=== PATIENT | male | born 1955 | race Caucasian/White ===

== ENCOUNTER 2017-12-30 13:36 | Emergency (ER) | END 2017-12-30 16:00 | disposition home or self-care (01) ==

== ENCOUNTER 2018-07-01 12:18 | Emergency (ER) | END 2018-07-01 16:00 | disposition home or self-care (01) ==

== ENCOUNTER 2019-02-25 10:48 | Inpatient (IN) | payer BC ==
[2019-02-25] VITALS (20 sets, daily range): BP systolic 109–146; BP diastolic 61–82; PULSE 64–82; RESP 14–19; Ht 165.1 cm; Wt 63.2 kg
[~2019-02-25] VITALS: Ht 165.1 cm; Wt 63.2 kg
[~2019-02-25 10:48] MED LIST: CLON0.5T PO; CLON0.5T14 PO; DULO30CA45 PO; TAMS-14 PO; TRAZ-111 PO
[2019-02-25] MEDS ORDERED: LORA0.5T PO ×2 (11:12)
[2019-02-25] MEDS ORDERED: DULO60CA6 PO (11:13)
[2019-02-25] MEDS ORDERED: TAMS-14 PO (11:13)
[2019-02-25] MEDS ORDERED: DULO30CA45 PO (11:13)
[2019-02-25] MEDS ORDERED: FINA5TAB4 PO (11:14)
[2019-02-25] MEDS ORDERED: TRAZ-111 PO (11:14)
--- NOTE | 2019-02-25 11:46 | PREAC ---
Date/Time of Note Date/Time of Note DATE: 02/25/19 TIME: 11:44 Anesthesia Eval and Record Evaluation Time Pre-Procedure Interview DATE: 02/25/19 TIME: 11:44 Age 63 Sex male NPO: 8 hrs Preoperative diagnosis BPH Planned procedure TURP Past Medical History Past Medical History: Includes Renal: BPH Psych: Anxiety (ON Lorazepam and Cymbalta) Surgery & Anesthesia Issues No known issue Meds Anticoagulation: No Beta Kirk within 24 hr: No Reason Beta Kirk not given: Pt. not on B-Kirk Reported Medications Trazodone Hcl* (Trazodone Hcl*) 50 Mg Tablet, 50 MG PO QHS PRN for SLEEP, #30 TAB 02/25/19 Finasteride* (Finasteride*) 5 Mg Tablet, 5 MG PO DAILY, TAB 02/25/19 Tamsulosin Hcl* (Flomax*) 0.4 Mg Cap.er.24h, 0.4 MG PO DAILY, CAP 02/25/19 Duloxetine Hcl* (Cymbalta*) 60 Mg Capsule.dr, 60 MG PO QAM, CAP 02/25/19 Duloxetine Hcl* (Cymbalta*) 30 Mg Capsule.dr, 30 MG PO QPM, CAP 02/25/19 Lorazepam* (Lorazepam*) 0.5 Mg Tablet, 0.25 MG PO QAM PRN for ANXIETY, TAB 02/25/19 Lorazepam* (Lorazepam*) 0.5 Mg Tablet, 0.5 MG PO HS PRN for SLEEP, TAB 02/25/19 Discontinued Reported Medications Clonazepam (Klonopin) 0.5 Mg Tablet, 0.25 MG PO HS, TAB 04/14/14 Trazodone Hcl* (Trazodone Hcl*) 50 Mg Tablet, 25 MG PO HS, TAB 04/14/14 Clonazepam* (Clonazepam*) 0.5 Mg Tablet, 0.25 MG PO DAILY, TAB 04/14/14 Duloxetine Hcl* (Cymbalta*) 30 Mg Capsule.dr, 30 MG PO DAILY, CAP 04/14/14 Discontinued Scripts Tamsulosin Hcl* (Flomax*) 0.4 Mg Cap.er.24h, 0.4 MG PO QPM, #30 CAP Prov:SHANNON ÁLVAREZ 07/01/18 Tamsulosin Hcl* (Flomax*) 0.4 Mg Cap.er.24h, 0.4 MG PO QPM, #30 CAP Prov:MOISES MOLINA MD 12/30/17 Meds reviewed: Yes Allergies Coded Allergies: egg (Verified Allergy, Severe, 02/25/19) Penicillins (Verified Allergy, Unknown, PRURITUS, 02/25/19) Allergies Reviewed: Yes Labs/Studies Labs Reviewed: Reviewed by anesthesiologist test: N/A Studies: ECG Pre-procedure Exam Airway: Adequate mouth opening, Adequate thyromental dist Mallampati: Mallampati II Teeth: Normal Lung: Normal Heart: Normal ASA Physical Status ASA physical status: 2 Emergency: None Planned Anesthetic General/MAC: LMA Planned Pain Management Parenteral pain med, Local by surgeon Pre-operative Attestations Prior to commencing anesthesia and surgery, the patient was re-evaluated, there was verification of: *The patient's identity *The results of appropriate recent lab work and preoperative vital signs *The above evaluation not changing prior to induction *Anesthetic plan, risk benefits, alternative and complications discussed with patient/family; questions answered; patient/family understands, accepts and wishes to proceed. ANTON NICOLE February 25, 2019 11:46
[2019-02-25] MEDS ORDERED: LIDOCAINE 2% (SDV) 5 ML INJ ONE (11:58)
[2019-02-25] MEDS ORDERED: PROPOFOL 20 ML ONE (11:58)
[2019-02-25] MEDS ORDERED: MIDAZOLAM 1 MG/ML 2 ML INJ ONE (11:58)
[2019-02-25] MEDS ORDERED: FENTAnyl 50 MCG/ML VIAL ONE (11:58)
[2019-02-25] MEDS ORDERED: CIPROFLOXACIN 400MG/D5W 200 ML IVPB STA (12:24)
--- NOTE | 2019-02-25 12:29 | HPN ---
Date/Time of Note Date/Time of Note DATE: 02/25/19 TIME: 12:29 Interval H&P Admission Note Pt. seen H&P reviewed: No system changes CLAUDIA YEPEZ MD February 25, 2019 12:29
[2019-02-25] MEDS ORDERED: CIPROFLOXACIN 400MG/D5W 200 ML ONE (12:31)
[2019-02-25] MEDS ORDERED: FAMOTIDINE 20 MG INJ ONE (12:59)
[2019-02-25] MEDS ORDERED: ONDANSETRON 4 MG INJ ONE (12:59)
[2019-02-25] MEDS ORDERED: DEXAMETHASONE 4 MG/ML 5 ML INJ ONE (12:59)
[2019-02-25] MEDS ORDERED: METOCLOPRAMIDE 10 MG INJ ONE (12:59)
[2019-02-25] MEDS ORDERED: EPHEDrine 25 MG/5 ML SYG ONE (13:13)
[2019-02-25] MEDS ORDERED: LABETALOL HCL 20MG INJ IV PRN (13:30)
[2019-02-25] MEDS ORDERED: hydrALAzine 20 MG INJ IV PRN (13:30)
[2019-02-25] MEDS ORDERED: ONDANSETRON 4 MG INJ IV PRN (13:30)
[2019-02-25] MEDS ORDERED: HYDROmorphONE 1 MG/5 ML IV SYRINGE IV PRN ×3 (13:30)
[2019-02-25] MEDS ORDERED: OXYCODONE/ACETAMINOPHEN (5/325) TAB PO PRN ×2 (13:30)
[2019-02-25] MEDS ORDERED: MEPERIDINE 25 MG INJ IV PRN (13:30)
[2019-02-25] MEDS ORDERED: MIDAZOLAM 1 MG/ML 2 ML INJ IV PRN (13:30)
[2019-02-25] MEDS ORDERED: ROCURONIUM 50 MG INJ ONE (13:35)
[2019-02-25] MEDS ORDERED: NEOSTIGMINE 3 MG/3 ML SYRINGE ONE (13:41)
[2019-02-25] MEDS ORDERED: GLYCOPYRROLATE 0.4 MG INJ ONE (13:41)
[2019-02-25] MEDS ORDERED: PHENYLephrine (100 MCG/ML) 10ML SYG ONE (15:08)
--- NOTE | 2019-02-25 15:48 | OPR ---
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 Timeout was done, the patient was identified by his name, birthdate and the procedure. The patient was given 400mg Cipro IV at the start of the procedure. The genital area was then prepped and draped in the usual sterile manner. Cystoscopy was done with a 22 [place] cystoscope and it showed prostatic enlargement with obstruction. The bladder was trabeculated. There was no bladder tumors or stones. The cystoscope was then removed and the urethra was dilated with the [place] dilators up to #30 [place]ian. The 26 [place]ian bipolar resectoscope sheath was then introduced under direct vision through the penile u rethra all the way to the bladder. Then the resection of the prostate was started. First the median lobe was resected then the right lateral lobe then the left lateral lobe and finally the anterior lobe as well as apical tissue. All the bleeders were electrocoagulated. All the prostatic chips were evacuated. Good hemostasis was obtained. The ureteral orifices as well as external sphincter were intact and safeguarded during the whole procedure. At the end of the procedure the resectoscope was removed and #24 [place]ian three-way Robb catheter was inserted into the bladder. The balloon was inflated with 90 mL of sterile water. The catheter was connected to a drainage bag and continuous bladder irrigation was started in the operating room with normal sali ne. The patient was transferred to the recovery room in stable and satisfactory condition. CLAUDIA YEPEZ MD February 25, 2019 15:48
--- NOTE | 2019-02-25 15:55 | PAC ---
Date/Time of Note Date/Time of Note DATE: 02/25/19 TIME: 15:54 Post-Anesthesia Notes Post-Anesthesia Note Last documented vital signs Vital Signs Date Temp Pulse Resp B/P (MAP) Pulse Ox O2 O2 Flow FiO2 Time Delivery Rate 02/25/19 98.4 70 16 112/61 99 Room Air 11:46 (78) Activity: WNL Respiratory function: WNL Cardiovascular function: WNL Mental status: Baseline Pain reasonably controlled: Yes Hydration appropriate: Yes Nausea/Vomiting absent: Yes DEE CASTILLO February 25, 2019 15:55
[2019-02-25] MEDS ORDERED: DOCUSATE SODIUM 100 MG CAP PO PRN (16:00)
[2019-02-25] MEDS ORDERED: MAGNESIUM HYDROXIDE 30ML CUP PO PRN (16:00)
[2019-02-25] MEDS ORDERED: traZODone 50 MG TAB PO PRN (17:30)
[2019-02-25] MEDS ORDERED: LORAZEPAM 0.5 MG TAB PO PRN ×2 (17:30)
[2019-02-25] MEDS: HYDROCODONE/APAP (5/325) TAB PO PRN (17:57)
[2019-02-25] MEDS: CIPROFLOXACIN 500 MG TAB PO SCH (17:58)
[2019-02-25] MEDS: DEXTROSE 5%-0.45% NACL 1,000 ML IV SCH (17:59)
[2019-02-25] MEDS: LACTATED RINGER'S 1,000 ML IV SCH (18:00)
--- NOTE | 2019-02-25 18:42 | HP ---
Date/Time of Note Date/Time of Note DATE: 02/25/19 TIME: 18:41 Assessment/Plan VTE Prophylaxis Pharmacological prophylaxis: NA/contraindicated Pharm contraindication: surgical contra Lines/Catheters IV [facility]from [facility] Saline Lock Assessment/Plan Hospital Course 1. Severe BPH status post TURP postop day 0 Continuous bladder irrigation Continue Flomax 2. Depression Continue meds Result Diagram: 02/25/19 1601 02/25/19 1601 Results 24hrs Laboratory Tests Test 02/25/19 12:20 02/25/19 16:01 White Blood Count 7.6 # Red Blood Count 4.96 Hemoglobin 14.5 11.6 L Hematocrit 43.7 35.0 L Mean Corpuscular Volume 88.1 Mean Corpuscular Hemoglobin 29.2 Mean Corpuscular Hemoglobin Concent 33.2 Red Cell Distribution Width 12.6 Platelet Count 221 Mean Platelet Volume 10.2 Immature Granulocytes % 0.300 Neutrophils % 62.4 Lymphocytes % 26.9 Monocytes % 7.7 Eosinophils % 1.9 Basophils % 0.8 Nucleated Red Blood Cells % 0.0 Immature Granulocytes # 0.020 Neutrophils # 4.7 Lymphocytes # 2.0 Monocytes # 0.6 Eosinophils # 0.1 Basophils # 0.1 Nucleated Red Blood Cells # 0.0 Prothrombin Time 13.0 Prothrombin Time Ratio 1.0 INR International Normalized Ratio 0.97 Activated Partial Thromboplast Time 28.4 Sodium Level 142 139 Potassium Level 4.4 3.9 Chloride Level 105 108 Carbon Dioxide Level 30 27 Anion Gap 7 4 L Blood Urea Nitrogen 26 H 25 H Creatinine 0.79 0.84 Est Glomerular Filtrat Rate mL/min > 60 > 60 Glucose Level 104 144 # Calcium Level 9.1 7.7 L Total Bilirubin 0.5 Direct Bilirubin 0.00 Indirect Bilirubin 0.5 Aspartate Amino Transf (AST/SGOT) 26 Alanine Aminotransferase (ALT/SGPT) 35 Alkaline Phosphatase 81 Total Protein 7.8 Albumin 4.2 Globulin 3.60 H Albumin/Globulin Ratio 1.16 HPI/ROS Admit Date/Time Admit Date/Time February 25, 2019 at 10:48 Hx of Present Illness Patient is a 63-year-old male with a history of severe BPH and depression who p resents for elective TURP. Patient is currently undergoing bladder irrigation with no significant complaints. ROS Constitutional: no complaints, improved Eyes: no complaints ENT: no complaints Respiratory: no complaints Cardiovascular: no complaints Gastrointestinal: no complaints Genitourinary: no complaints Musculoskeletal: no complaints Skin: no complaints Neurologic: no complaints Endocrine: no complaints Lymphatic: no complaints Psychological: no complaints, nl mood/affect Immunologic: no complaints PMH/Family/Social Past Medical History BPH and depression Medications Current Medications Lactated Ringer's 1,000 ml @ 25 mls/hr Q24H IV ; Start 02/25/19 at 12:30; Stop 02/27/19 at 04:29 Dextrose/Sodium Chloride 1,000 ml @ 50 mls/hr Q20H IV Last administered on 02/25/19at 17:59; Admin Dose 50 MLS/HR; Start 02/25/19 at 15:39 Ciprofloxacin (Cipro) 500 mg BID@06,18 PO Last administered on 02/25/19at 17:58; Admin Dose 500 MG; Start 02/25/19 at 18:00 Docusate Sodium (Colace) 100 mg BID PRN PO CONSTIPATION; Start 02/25/19 at 16:00 Docusate Sodium (Colace) 100 mg BID PO ; Start 02/25/19 at 21:00 Ferrous Sulfate (Ferrous Sulfate (Ec)) 325 mg BID PO ; Start 02/25/19 at 21:00 Magnesium Hydroxide (Milk Of Mag) 30 ml DAILY PRN PO CONSTIPATION; Start 02/25/19 at 16:00 Duloxetine HCl (Cymbalta) 30 mg QPM PO ; Start 02/25/19 at 21:00 Duloxetine HCl (Cymbalta) 60 mg QAM PO ; Start 02/26/19 at 09:00 Finasteride (Proscar) 5 mg DAILY PO ; Start 02/26/19 at 09:00 Lorazepam (Ativan) 0.25 mg QAM PRN PO ANXIETY; Start 02/25/19 at 17:30 Lorazepam (Ativan) 0.5 mg HS PRN PO SLEEP; Start 02/25/19 at 17:30 Tamsulosin HCl (Flomax) 0.4 mg DAILY PO ; Start 02/26/19 at 09:00 Trazodone HCl (Desyrel) 50 mg QHS PRN PO SLEEP; Start 02/25/19 at 17:30 Acetaminophen/ Hydrocodone Bitart ([place] (5/325)) 1 tab Q6H PRN PO MODERATE PAIN LEVEL 4-6 Last administered on 02/25/19at 17:57; Admin Dose 1 TAB; Start 02/25/19 at 18:00 Coded Allergies: egg (Verified Allergy, Severe, 02/25/19) Penicillins (Verified Allergy, Unknown, PRURITUS, 02/25/19) Past Surgical History TURP today Family History Significant Family History: no pertinent family hx Social History Alcohol Use: rarely Smoking Status: Never smoker Drug Use: none Exam/Review of Systems Vital Signs Vitals Vital Signs Date Temp Pulse Resp B/P (MAP) Pulse Ox O2 O2 Flow FiO2 Time Delivery Rate 02/25/19 66 16 122/71 98 Room Air 16:45 (88) 02/25/19 98.2 16:40 02/25/19 6.0 16:00 Exam Constitutional: alert, oriented Respiratory: clear to auscultation Cardiovascular: regular rate and rhythm Gastrointestinal: soft; No distended Musculoskeletal: nl extremities to inspection CARI MCMULLEN February 25, 2019 18:42
[2019-02-25] MEDS: DOCUSATE SODIUM 100 MG CAP PO SCH (20:03)
[2019-02-25] MEDS: FERROUS SULFATE (EC) 325 MG TAB PO SCH (20:03)
[2019-02-25] MEDS ORDERED: DULOXETINE 30 MG CAP DR PO SCH (21:00)
[2019-02-26 00:26] VITALS: BP 115/63; PULSE 60; RESP 18
[2019-02-26] MEDS: HYDROCODONE/APAP (5/325) TAB PO PRN (01:36)
[2019-02-26 04:41] VITALS: BP 136/64; PULSE 70; RESP 18
[2019-02-26] MEDS: CIPROFLOXACIN 500 MG TAB PO SCH (05:06)
[2019-02-26] MEDS: DEXTROSE 5%-0.45% NACL 1,000 ML IV SCH ×2 (05:08→11:39)
--- NOTE | 2019-02-26 08:07 | PN ---
Date/Time of Note Date/Time of Note DATE: 02/26/19 TIME: 08:04 Assessment/Plan Lines/Catheters IV Catheter Type (from Nrs): Peripheral IV Rizo in Place (from Nrs): Yes Cont'd rizo catheter reason: other (indicate) (Urological surgery) Assessment/Plan Chief Complaint/Hosp Course 63-year-old male status post transurethral resection of the prostate. He is postop day 1. The Rizo catheter is draining clear to clear pink urine with the bladder irrigation. We will stop the irrigation and connect the Rizo catheter to a leg bag and if the urine remains clear then he could go home this afternoon and I will see him in the office in 1 week to remove the Rizo catheter. Prescription was written for [place] 5/325mg, Cipro 500 mg twice a day, Colace 100 mg twice a day, milk of magnesia 30 mL as needed and ferrous sulfate 325 mg twice a day. Subjective 24 Hr Interval Summary Patient is comfortable. He did not sleep last night more than 2 hours Exam/Review of Systems Vital Signs Vitals Vital Signs Date Temp Pulse Resp B/P (MAP) Pulse Ox O2 O2 Flow FiO2 Time Delivery Rate 02/26/19 98.2 70 18 136/64 100 04:41 (88) 02/25/19 Room Air 19:00 02/25/19 6.0 16:00 Intake and Output 02/25/19 02/25/19 02/26/19 1515:00 23:00 07:00 IntakeIntake Total 1540 ml 975 ml OutputOutput Total 1625 ml 900 ml BalanceBalance -85 ml 75 ml Exam Free Text/Dictation Patient is post transurethral resection of the prostate. The Rizo catheter is draining clear to clear pink urine with the bladder irrigation. Results Result Diagram: 02/26/19 0435 02/25/19 1601 CLAUDIA YEPEZ MD February 26, 2019 08:07
[2019-02-26 08:30] VITALS: BP 112/65; PULSE 74; RESP 18
[2019-02-26] MEDS: FERROUS SULFATE (EC) 325 MG TAB PO SCH (08:55)
[2019-02-26] MEDS: DOCUSATE SODIUM 100 MG CAP PO SCH (08:55)
[2019-02-26] MEDS ORDERED: FINASTERIDE 5 MG TAB PO SCH (09:00)
[2019-02-26] MEDS ORDERED: TAMSULOSIN (SR) 0.4 MG CAP PO SCH (09:00)
[2019-02-26] MEDS ORDERED: DULOXETINE 30 MG CAP DR PO SCH (09:00)
--- NOTE | 2019-02-26 11:53 | PDOCDIS ---
Discharge Instructions CONDITION [id number] Patient Condition: [id number] Good HOME CARE INSTRUCTIONS: [id number] Diet Instructions: [id number] Regular ACTIVITY: [id number] Activity Restrictions: [id number] No Restrictions FOLLOW UP/APPOINTMENTS Follow-up Plan FOLLOW UP WITH YOUR PCP IN 1-2 WEEKS, FOLLOW UP WITH DR YEPEZ SCHEDULED CARI MCMULLEN February 26, 2019 11:53
[2019-02-26] MEDS: LACTATED RINGER'S 1,000 ML IV SCH (12:30)
--- NOTE | 2019-02-27 12:20 | DS ---
Date/Time of Note Date/Time of Note DATE: 02/27/19 TIME: 12:19 Discharge Summary Admission/Discharge Info Admit Date/Time February 25, 2019 at 10:48 Discharge Date/Time February 26, 2019 at 15:04 Discharge Diagnosis 1. Severe BPH status post TURP Continuous bladder irrigation Continue Flomax Follow-up with urology as outpatient 2. Depression Continue home meds Patient Condition: Good Hospital Course Patient is a 63-year-old male with a history of severe BPH and depression who p resented for elective TURP. Patient is also status post bladder irrigation with no significant complaints. Patient stable for DC to follow-up with urology as an outpatient. On the day of discharge patient's vitals, labs and physical exam are stable. Home Meds Reported Medications Trazodone Hcl* (Trazodone Hcl*) 50 Mg Tablet, 50 MG PO QHS PRN for SLEEP, #30 T AB 02/25/19 Tamsulosin Hcl* (Flomax*) 0.4 Mg Cap.er.24h, 0.4 MG PO DAILY, CAP 02/25/19 Duloxetine Hcl* (Cymbalta*) 60 Mg Capsule.dr, 60 MG PO QAM, CAP 02/25/19 Duloxetine Hcl* (Cymbalta*) 30 Mg Capsule.dr, 30 MG PO QPM, CAP 02/25/19 Lorazepam* (Lorazepam*) 0.5 Mg Tablet, 0.25 MG PO QAM PRN for ANXIETY, TAB 02/25/19 Lorazepam* (Lorazepam*) 0.5 Mg Tablet, 0.5 MG PO HS PRN for SLEEP, TAB 02/25/19 Discontinued Reported Medications Finasteride* (Finasteride*) 5 Mg Tablet, 5 MG PO DAILY, TAB 02/25/19 Clonazepam (Klonopin) 0.5 Mg Tablet, 0.25 MG PO HS, TAB 04/14/14 Trazodone Hcl* (Trazodone Hcl*) 50 Mg Tablet, 25 MG PO HS, TAB 04/14/14 Clonazepam* (Clonazepam*) 0.5 Mg Tablet, 0.25 MG PO DAILY, TAB 04/14/14 Duloxetine Hcl* (Cymbalta*) 30 Mg Capsule.dr, 30 MG PO DAILY, CAP 04/14/14 Discontinued Scripts Tamsulosin Hcl* (Flomax*) 0.4 Mg Cap.er.24h, 0.4 MG PO QPM, #30 CAP Prov:SHANNON ÁLVAREZ 07/01/18 Tamsulosin Hcl* (Flomax*) 0.4 Mg Cap.er.24h, 0.4 MG PO QPM, #30 CAP Prov:MOISES MOLINA MD 12/30/17 Follow-up Plan FOLLOW UP WITH YOUR PCP IN 1-2 WEEKS, FOLLOW UP WITH DR YEPEZ SCHEDULED Primary Care Provider Jet Gonzalez MD Time spent on discharge: > 30 minutes CARI MCMULLEN February 27, 2019 12:20
== END 2019-02-26 15:04 | disposition home or self-care (01) | DRG 714 ==
LOC: REC 10:48 → EDSTATUS 12:30 → MS1 16:31
PROVIDERS: ADMIT Urology; ATTEND Urology
PROC: 0VT08ZZ Resection of Prostate, Via Natural or Artificial Opening Endoscopic (ICD-10-PCS; principal; 2019-02-25 12:30)
DX: N40.1 Benign prostatic hyperplasia with lower urinary tract symptoms (principal); R33.8 Other retention of urine; F32.9 Major depressive disorder, single episode, unspecified
CPT/HCPCS: 80048; 80053; 85014; 85018; 85025; 85610; 85730; 88305; J0744; J1100; J1170; J2250; J2370; J2405; J2710; J2765; J3010; J7042; J7120